=== PATIENT | male | born 1995 | race Caucasian/White ===

== ENCOUNTER 2018-02-13 17:10 | Emergency (ER) | payer OTHER ==
[2018-02-13 17:16] VITALS: BP 119/73; PULSE 85; TEMP 100.3; BMI 22.1
[2018-02-13] MEDS ORDERED: ACETAMINOPHEN 500 MG TABLET (FP) PO ONE (17:29)
[2018-02-13] MEDS ORDERED: ACETAMINOPHEN 500 MG TABLET (FP) ONE (17:32)
--- NOTE | 2018-02-13 17:33 | PDOC ---
History of Present Illness - General Chief Complaint: Sore Throat Stated Complaint: SORE THROAT Time Seen by Provider: 02/13/18 17:21 - History of Present Illness Initial Comments: 22-year-old male presents for evaluation of sore throat and fever at home. He was seen in the emergency room about 2 weeks ago he states, he was treated with by mouth Motrin since that time his sore throat is worsened 02/13/18 17:29 Past History - Past Medical History Allergies/Adverse Reactions: Allergies Allergy/AdvReac Type Severity Reaction Status Date / Time No Known Allergies Allergy Verified 02/13/18 17:13 Home Medications: Ambulatory Orders Ibuprofen 800 mg PO ACDIN 7 Days #21 tablet 01/28/18 Anemia: No COPD: No - Surgical History Abdominal Surgery: No - Suicide/Smoking/Psychosocial Hx Smoking Status: Yes Smoking History: Never smoked Have you smoked in the past 12 months: Yes Number of Cigarettes Smoked Daily: 20 Information on smoking cessation initiated: Yes 'Breaking Loose' booklet given: 02/13/18 Hx Alcohol Use: No Drug/Substance Use Hx: No Substance Use Type: None Review of Systems - Review of Systems Comments:: GENERAL/CONSTITUTIONAL: [+ fever and chills. No weakness. No weight change.] HEAD, EYES, EARS, NOSE AND THROAT: [No change in vision. No ear pain or discharge. + sore throat.] CARDIOVASCULAR: [No chest pain or shortness of breath.] RESPIRATORY: [No cough, wheezing, or hemoptysis.] GASTROINTESTINAL: [No nausea, vomiting, diarrhea or constipation. No rectal bleeding.] GENITOURINARY: [No dysuria, frequency, or change in urination.] MUSCULOSKELETAL: [No joint or muscle swelling or pain. No neck or back pain.] SKIN AND BREASTS: [No rash or easy bruising.] NEUROLOGIC: [No headache, vertigo, loss of consciousness, or loss of sensation.] PSYCHIATRIC: [No depression or anxiety.] ENDOCRINE: [No increased thirst. No abnormal weight change.] HEMATOLOGIC/LYMPHATIC: [No anemia, easy bleeding, or history of blood clots.] ALLERGIC/IMMUNOLOGIC: [No hives or skin allergy. No latex allergy.] 02/13/18 17:31 *Physical Exam - Vital Signs Last Vital Signs Temp Pulse Resp BP Pulse Ox 100.3 F H 85 18 119/73 100 02/13/18 17:14 02/13/18 17:14 02/13/18 17:14 02/13/18 17:14 02/13/18 17:14 - Physical Exam Comments: GENERAL: [The patient is awake, alert, and fully oriented, in no acute distress. ] HEAD: [Normal with no signs of trauma.] EYES: [Pupils equal, round and reactive to light, extraocular movements intact, sclera anicteric, conjunctiva clear.] ENT: [Ears normal, nares patent, oropharynx erythematous with exudates. Moist mucous membranes.] NECK: [Normal range of motion, supple with lymphadenopathy, no JVD, or masses.] LUNGS: [Breath sounds equal, clear to auscultation bilaterally. No wheezes, and no crackles.] HEART: [Regular rate and rhythm, normal S1 and S2 without murmur, rub or gallop. ] ABDOMEN: [Soft, nontender, normoactive bowel sounds. No guarding, no rebound. No masses.] EXTREMITIES: [Normal range of motion, no edema. No clubbing or cyanosis. No cords, erythema, or tenderness.] NEUROLOGICAL: [Cranial nerves II through XII grossly intact. Normal speech, normal gait.] PSYCH: [Normal mood, normal affect.] SKIN: [Warm, Dry, normal turgor, no rashes or lesions noted.] 02/13/18 17:32 Medical Decision Making - Medical Decision Making 22-year-old male with sore throat for 2 weeks treated with Motrin without relief he did tell me later on that he was on Zithromax for 3 days which she didn't was helping him which brought him to the ER today. His rapid strep is negative culture was sent. I've ordered a Monospot and advised him to take Motrin for his throat pain and follow up with his PCP in the next day or 2 for results return to the emergency room if symptoms unresolved prior to follow-up or they worsen 02/13/18 18:11 *DC/Admit/Observation/Transfer Diagnosis at time of Disposition: Viral pharyngitis - Discharge Dispostion Disposition: HOME Condition at time of disposition: Stable Decision to Admit order: No - Referrals Referrals: Efrain Marques MD [Staff Physician] - - Patient Instructions Printed Discharge Instructions: Viral Pharyngitis, DI for Viral Pharyngitis Additional Instructions: Warm salt water gargles 5-6 times daily for your sore throat. Avoid sports. We sent blood work for mononucleosis which we will follow up with you should the results be positive. We've also cultured her throat to see if any bacteria grows out. Return to the emergency room if her symptoms worsen or go unresolved. In the meantime given you a primary care physician to follow up with. He may take Motrin and continue with that fear throat pain. - Post Discharge Activity
== END 2018-02-13 18:19 | disposition home or self-care (01) ==
LOC: JERFT 17:10
DX: J02.9 Acute pharyngitis, unspecified (principal); B97.89 Other viral agents as the cause of diseases classified elsewhere
CPT/HCPCS: 36415; 86308; 87070; 87430; 99281-25

== ENCOUNTER 2018-07-29 13:20 | Emergency (ER) | payer OTHER ==
[2018-07-29 13:26] VITALS: BP 103/52; PULSE 82; TEMP 99.3; BMI 22.8
[2018-07-29] MEDS ORDERED: DEXAMETHASONE SOD PHOSPHATE 10 MG/1 ML VIAL IM ONE (13:59)
[2018-07-29] MEDS ORDERED: DEXAMETHASONE SOD PHOSPHATE 10 MG/1 ML VIAL ONE (14:02)
--- NOTE | 2018-07-29 14:04 | PDOC ---
History of Present Illness - General Chief Complaint: Sore Throat Stated Complaint: SORE THROAT Time Seen by Provider: 07/29/18 13:41 History Source: Patient Exam Limitations: No Limitations - History of Present Illness Initial Comments: 07/29/18 13:59 22 yr male with sore throat for 3 days on amoxicillin for dental infection and ibuprofen for pain. pt denies fever. Severity: mild Associated Symptoms: reports: denies symptoms Past History - Past Medical History Allergies/Adverse Reactions: Allergies Allergy/AdvReac Type Severity Reaction Status Date / Time No Known Allergies Allergy Verified 07/29/18 13:26 Home Medications: Ambulatory Orders Ibuprofen 800 mg PO ACDIN 7 Days #21 tablet 01/28/18 Anemia: No COPD: No - Surgical History Abdominal Surgery: No - Suicide/Smoking/Psychosocial Hx Smoking Status: Yes Smoking History: Current every day smoker Have you smoked in the past 12 months: Yes Number of Cigarettes Smoked Daily: 10 Information on smoking cessation initiated: No 'Breaking Loose' booklet given: 02/13/18 Hx Alcohol Use: No Drug/Substance Use Hx: No Substance Use Type: None Review of Systems - Review of Systems Able to Perform ROS?: Yes Is the patient limited [place]ian proficient: No Constitutional: No: Symptoms Reported HEENTM: Yes: Symptoms Reported *Physical Exam - Vital Signs Last Vital Signs Temp Pulse Resp BP Pulse Ox 99.3 F 82 17 103/52 L 100 07/29/18 13:22 07/29/18 13:22 07/29/18 13:22 07/29/18 13:22 07/29/18 13:22 - Physical Exam General Appearance: Yes: Nourished, Appropriately Dressed, Mild Distress, Thin HEENT: positive: EOMI, MERCEDES, TMs Normal, Tonsillar Exudate, Tonsillar Erythema Neck: positive: Supple, Lymphadenopathy (L). negative: Lymphadenopathy (R) Respiratory/Chest: positive: Lungs Clear, Normal Breath Sounds Cardiovascular: positive: Regular Rhythm, Regular Rate Medical Decision Making - Medical Decision Making 07/29/18 14:03 cc: sore throat 3 days low grade fever on day 2 of amox 500mg bid for dental infection last took ibuprofen yesterday pt is able to speak and swallow secretions will give decadron injection continue the amox *DC/Admit/Observation/Transfer Diagnosis at time of Disposition: Sore throat - Discharge Dispostion Disposition: HOME Condition at time of disposition: Improved - Referrals Referrals: Grace Damico [Primary Care Provider] - - Patient Instructions Additional Instructions: gargle with warm salt water 4-5 times a day take the ibuprofen 800mg every 8hrs for pain continue the amoxicillin finish all the pills tea with honey and lemon pleanty of fluids to drink ice pops, jello follow with your doctor if any worsening symptoms - Post Discharge Activity
== END 2018-07-29 15:12 | disposition home or self-care (01) ==
LOC: JERFT 13:20
PROC: 3E0233Z Introduction of Anti-inflammatory into Muscle, Percutaneous Approach (ICD-10-PCS; principal; 2018-07-29)
DX: J02.9 Acute pharyngitis, unspecified (principal)
CPT/HCPCS: 87070; 87430; 99281-25; J1100

== ENCOUNTER 2022-04-11 23:51 | Emergency (ER) | payer OTHER ==
[2022-04-12 00:07] VITALS: BP 110/76; PULSE 84; TEMP 97.6; BMI 21.2
[2022-04-12] MEDS ORDERED: ACETAMINOPHEN 1000 MG/100 ML BAG IVPB ONE (01:52)
[2022-04-12] MEDS ORDERED: SODIUM CHLORIDE 0.9% 500 ML INFUS.BAG IV ONE (01:52)
[2022-04-12] MEDS ORDERED: ACETAMINOPHEN INJECTION 100 ML IVPB ONE (02:35)
[2022-04-12 02:42] LABS: BASO % 0.3 % (0-2.0); EOS % 0.8 % (0-4.5); HEMATOCRIT 39.7 % (35.4-49); HEMOGLOBIN 13.4 GM/dL (11.7-16.9); LYMPH % 14.1 % (8-40); MCH 27.5 pg (25.7-33.7); MCHC 33.7 g/dl (32.0-35.9); MEAN CELL VOLUME 81.6 fl (80-96); MEAN PLT VOLUME 7.8 fl (7.5-11.1); MONO % 14.2 % (3.8-10.2); NEUT % 70.6 % (42.8-82.8); PLATELET COUNT 162 10^3/uL (134-434); RBC 4.86 M/mm3 (4.00-5.60); RDW 13.2 % (11.9-15.9); WHITE BLOOD COUNT 8.5 K/mm3 (4.0-10.0)
[2022-04-12 03:06] LABS: CALCIUM 8.8 mg/dL (8.5-10.1)
[2022-04-12 03:07] LABS: ALBUMIN 3.7 g/dl (3.4-5.0); BLOOD UREA NITROGEN 9.3 mg/dL (7-18)
[2022-04-12 03:09] LABS: CREATININE 0.8 mg/dL (0.55-1.3)
[2022-04-12 03:11] LABS: EPI CELLS 2 /uL (0-25.1); HYALINE CASTS 1 /uL (0-3.1); PH,URINE 6.5 (5.0-8.0); URINE APPEARANCE CLEAR; URINE BACTERIA 4 /uL (0-1359); URINE BILIRUBIN NEGATIVE (NEGATIVE); URINE COLOR YELLOW; URINE GLUCOSE (UA) NEGATIVE (NEGATIVE); URINE KETONE TRACE (NEGATIVE); URINE LEUK ESTERASE NEGATIVE (NEGATIVE); URINE NITRITE NEGATIVE (NEGATIVE); URINE PROTEIN NEGATIVE (NEGATIVE); URINE RBC 39 /uL (0-23.9); URINE UROBILINOGEN 0.2 mg/dL (0.2-1.0); URINE WBC 2 /uL (0-25.8)
[2022-04-12 03:11] LABS: BILIRUBIN,TOTAL 0.5 mg/dL (0.2-1); TOT PROT 6.7 g/dl (6.4-8.2)
== END 2022-04-12 05:36 | disposition home or self-care (01) ==
LOC: JER 23:51
PROC: 3E0333Z Introduction of Anti-inflammatory into Peripheral Vein, Percutaneous Approach (ICD-10-PCS; principal; 2022-04-11)
DX: K52.9 Noninfective gastroenteritis and colitis, unspecified (principal); R10.9 Unspecified abdominal pain
CPT/HCPCS: 36415; 74177-TC; 80053; 81003; 83690; 85025; 87086; 99285-25; Q9967